=== PATIENT | male | born 1975 | race Caucasian/White ===

== ENCOUNTER 2017-08-18 19:20 | Emergency (ER) | payer OTHER ==
[2017-08-18 19:33] VITALS: BP 141/77; PULSE 81; RESP 16; TEMP 97.6
[2017-08-18] MEDS ORDERED: PROPARACAINE 0.5% OPHTH DROPS 15 ML BTL LEFT EYE STA (19:37)
[2017-08-18] MEDS ORDERED: DIPH,PERTUS(ACELL)TETVAC-LF 0.5 ML VIAL IM ONE (19:37)
[2017-08-18] MEDS ORDERED: TOBRAMYCIN 0.3% OPHTH OINT 3.5 GM TUBE LEFT EYE STA (19:50)
--- NOTE | 2017-08-18 19:50 | ED ---
ENT HPI - General Chief complaint: ENT Stated complaint: Eye injury Time Seen by Provider: 08/18/17 19:34 Source: patient Mode of arrival: ambulatory Limitations: no limitations - History of Present Illness Initial comments: 41-year-old male patient presented to the emergency department today for complaints of left eye redness and discomfort. Patient states that around 5:00 pm he was working in the garage when a screw broke off and hit him in the eye. He states he does not believe a foreign body is present as it was a big piece. He states that he has had eye redness and clear tearing since the incident. He denies any blurred or double vision with this. He believes his last tetanus vaccine was given 7-8 years ago. He denies any other injuries. Patient denies any recent rash, fever, chills, shortness breath, chest pain, abdominal pain, nausea, vomiting, diarrhea, constipation, back pain, numbness, tingling, dizziness, weakness, hematuria, dysuria, urinary urgency, urinary frequency, headache, visual changes, or any other complaints. - Related Data Home Medications Medication Instructions Recorded Confirmed No Known Home Medications [No 05/17/14 05/17/14 Known Home Medications] Allergies Allergy/AdvReac Type Severity Reaction Status Date / Time Penicillins Allergy Unknown Verified 08/18/17 19:32 Review of Systems ROS Statement: Those systems with pertinent positive or pertinent negative responses have been documented in the HPI. ROS Other: All systems not noted in ROS Statement are negative. Past Medical History Past Medical History: No Reported History History of Any Multi-Drug Resistant Organisms: None Reported Past Surgical History: Hernia Repair Past Psychological History: No Psychological Hx Reported Smoking Status: Never smoker Past Alcohol Use History: None Reported Past Drug Use History: None Reported General Exam Limitations: no limitations General appearance: alert, in no apparent distress, other (This is a well- developed, well-nourished adult male patient in no acute distress. Vital signs upon presentation are temperature 97.6F, pulse 81, respirations 16, blood pressure 141/77, pulse ox 96% on room air.) Eye exam: Present: normal appearance, PERRL, EOMI, conjunctival injection (Mild left), other (There is left sided mild conjunctival injection. Clear tearing. Fluorescein stain with Wood's lamp examination was performed and did reveal at abrasions to the left cornea, there is also evidence of a conjunctival abrasion. No hyphema or evidence of globe rupture.). Absent: scleral icterus, nystagmus, periorbital swelling ENT exam: Present: normal exam, normal oropharynx, mucous membranes moist Neck exam: Present: normal inspection. Absent: tenderness, meningismus, lymphadenopathy Respiratory exam: Present: normal lung sounds bilaterally. Absent: respiratory distress, wheezes, rales, rhonchi, stridor Cardiovascular Exam: Present: regular rate, normal rhythm, normal heart sounds. Absent: systolic murmur, diastolic murmur, rubs, gallop, clicks GI/Abdominal exam: Present: soft, normal bowel sounds. Absent: distended, tenderness, guarding, rebound, rigid Neurological exam: Present: alert, oriented X3, CN II-XII intact Psychiatric exam: Present: normal affect, normal mood Skin exam: Present: warm, dry, intact, normal color. Absent: rash Course Vital Signs 08/18/17 19:29 Temperature 97.6 F Pulse Rate 81 Respiratory 16 Rate Blood Pressure 141/77 O2 Sat by Pulse 96 Oximetry Medical Decision Making - Medical Decision Making 41-year-old male patient presented to the emergency department today for evaluation of left eye discomfort and drainage. Patient did have an injury to the eye around 5 PM. Physical examination did reveal left-sided conjunctival injection with clear drainage. Fluoroscein stain with Wood's lamp examination was performed and did reveal a corneal and conjunctival abrasion. No evidence of foreign body. Tetanus was updated. Patient is instructed take ibuprofen for pain control. He is given tobramycin ointment to put in the eye 4 times daily. He is instructed to follow-up with ophthalmology if his symptoms aren't improving over the next 2 days. He is instructed to return here immediately for any new, worsening, or concerning symptoms. He verbalizes understanding and agrees with this plan. Disposition Clinical Impression: Left corneal abrasion, Abrasion of left conjunctiva Disposition: HOME SELF-CARE Condition: Good Instructions: Corneal Abrasion (ED) Additional Instructions: Put in a 1 cm of the ointment into the lower eyelid and blink through. Do this 4 times daily. Follow-up with ophthalmology if her symptoms aren't improving over the next 2 days. Return here immediate for any new, worsening, or concerning symptoms. Referrals: Ken Cheatham MD [Primary Care Provider] - 1-2 days Time of Disposition: 19:50
== END 2017-08-18 20:32 | disposition home or self-care (01) ==
LOC: EC 19:20
DX: S05.02XA Injury of conjunctiva and corneal abrasion without foreign body, left eye, initial encounter (principal); Z23 Encounter for immunization; Z88.0 Allergy status to penicillin; W22.8XXA Striking against or struck by other objects, initial encounter; Y92.59 Other trade areas as the place of occurrence of the external cause
CPT/HCPCS: 90471; 90715; 99283

== ENCOUNTER → 2018-03-09 | Outpatient (CLI) | payer OTHER ==
--- NOTE | 2018-03-09 08:55 | US ---
EXAMINATION TYPE: US abdomen complete DATE OF EXAM: 03/09/2018 COMPARISON: NONE CLINICAL HISTORY: R10.11 RIGHT UPPER QUADRANT PAIN. EXAM MEASUREMENTS: Liver Length: 13.8 cm Gallbladder Wall: 0.3 cm CBD: 0.4 cm Spleen: 11.4 cm Right Kidney: 13.1 x 6.2 x 6.0 cm Left Kidney: 12.8 x 6.5 x 5.9 cm Pancreas: visualized portions wnl Liver: difficult to penetrate . There is increased echogenicity of the hepatic parenchyma with dimin ished visualization of the portal triads most commonly relating to hepatic steatosis and limiting robert luation for underlying hepatic masses. Gallbladder: No stones seen Evidence for sonographic Persaud's sign: No CBD: wnl Spleen: wnl Right Kidney: No hydronephrosis or masses seen Left Kidney: No hydronephrosis or masses seen Upper IVC: wnl Abd Aorta: limited visualization due to midline bowel gas, visualized portions wnl. The intrahepatic portion of the IVC and proximal abdominal aorta are within normal limits. There is no evidence of cholelithiasis. Common bile duct is unremarkable. The visualized portions of the spear creas are homogenous. The spleen is unremarkable. Kidneys are symmetric and free of hydronephrosis. No renal lesions are seen. IMPRESSION: 1. Sonographic findings most commonly related to hepatic steatosis. Correlate with liver function radha ts. 2. No sonographic evidence of cholelithiasis or acute cholecystitis.
== END | disposition home or self-care (01) ==
LOC: RADUSWWP 07:35
PROVIDERS: ATTEND Family Medicine
DX: R10.11 Right upper quadrant pain (principal)
CPT/HCPCS: 76700

== ENCOUNTER 2025-02-18 08:56 | Day surgery (SDC) | payer OTHER ==
[2025-02-18] MEDS: IV FLUID CONTINUATION 1,000 ML IV ONE (09:16)
[2025-02-18 09:31] VITALS: TEMP 97
[2025-02-18] MEDS: LACTATED RINGERS 1,000 ML IV SCH (09:32)
[2025-02-18] MEDS ORDERED: PROPOFOL 10 MG/ML 20 ML VIAL IV ONE (10:01)
--- NOTE | 2025-02-18 10:22 | P.PCN ---
Date of Procedure: 02/18/25 Procedure(s) Performed: BRIEF HISTORY: Patient is a 49-year-old pleasant white male scheduled for an elective colonoscopy as a part of screening for colon cancer. PROCEDURE PERFORMED: Colonoscopy with biopsy. PREOPERATIVE DIAGNOSIS: Screening for colon cancer. IV sedation per Anesthesia. PROCEDURE: After informed consent was obtained, the patient, was brought into the endoscopy unit. IV sedation was administered by Anesthesia under continuous monitoring. Digital rectal examination was normal. Initially the Olympus CF-160 flexible video colonoscope was then inserted in the rectum, gradually advanced into the cecum without any difficulty. Careful examination was performed as the scope was gradually being withdrawn. Ileocecal valve and the appendiceal orifice were visualized and appeared normal. Prep was excellent. Mucosa of the cecum, ascending colon, appeared normal. The transverse colon there was a 4 mm polyp that was removed by cold biopsy. The descending colon there was another 4 mm sessile polyp that was removed by cold biopsy. Rest of the transverse colon, descending colon, sigmoid colon, and rectum appeared normal. Retroflexion was performed in the rectum and no lesions were seen. The patient tolerated the procedure well. IMPRESSION: 4 mm transverse colon polyp status post cold biopsy 4 mm descending colon polyp status post cold biopsy Rest of the colon appeared normal RECOMMENDATIONS: Findings of this examination were discussed with the patient as well as her family. He was advised to follow-up with the biopsy results. If the biopsy reveals adenoma can have repeat colonoscopy in 5 years..
[2025-02-18 10:43] VITALS: BP 119/78; PULSE 62; RESP 16
== END 2025-02-18 11:05 | disposition home or self-care (01) ==
LOC: ORWHC2ENDO 08:56
PROVIDERS: ATTEND Internal Medicine Gastroenterology
DX: Z12.11 Encounter for screening for malignant neoplasm of colon (principal); D12.3 Benign neoplasm of transverse colon; D12.4 Benign neoplasm of descending colon; Z88.0 Allergy status to penicillin
CPT/HCPCS: 88305; 45380; J2704